=== PATIENT | male | born 1980 | race Caucasian/White ===

== ENCOUNTER → 2022-04-10 12:47 | Outpatient (CLI) | payer OTHER, SELFPAY ==
[2022-04-10 13:15] LABS: Basophils # 0.1 K/mm3 (0-0.2); Basophils % 0.7 % (0.1-2.0); Eosinophils # 0.3 K/mm3 (0.0-0.4); Hematocrit 40.3 % (42.0-52.0); Hemoglobin 13.2 g/dL (14.1-18.0); Lymphocytes # 1.2 K/mm3 (0.7-4.5); Mean Corpuscular HGB Conc 32.8 g/dL (31.8-35.4); Mean Corpuscular Hemoglobin 29.8 pg (27.0-31.2); Mean Corpuscular Volume 90.8 fl (80-94); Mean Platelet Volume 8.9 fl (7.4-10.4); Monocytes # 0.3 K/mm3 (0.1-1.0); Monocytes % 3.7 % (1.7-9.3); Neutrophils # 6.6 K/mm3 (1.8-7.8); Neutrophils % 77.6 % (37.0-80.0); Platelet Count 146 K/mm3 (142-424); Red Blood Count 4.44 M/mm3 (4.60-6.20); Red Cell Distribution Width 14.7 % (11.5-17.5); White Blood Count 8.5 K/mm3 (4.8-10.8)
[2022-04-10 13:19] LABS: Strep Scrn Group A (Rapid) Negative (Negative)
== END ==
PROVIDERS: PCP Family Medicine; Visit Provider Nurse Practitioner Family
DX: Z20.822 Contact with and (suspected) exposure to COVID-19 (principal)
CPT/HCPCS: 85025; 87275; 87276; 87430; C9803; U0003; U0005

== ENCOUNTER 2022-07-29 09:42 | Emergency (ER) | payer OTHER, SELFPAY ==
[2022-07-29 10:05] VITALS: BP 158/94; PULSE 73; RESP 22; TEMP 36.8; O2SAT 98; BMI 26.5
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
[2022-07-29 11:31] VITALS: BP 158/94; PULSE 73; RESP 19; TEMP 36.8; O2SAT 98
== END 2022-07-29 11:30 | disposition home or self-care (01) ==
PROVIDERS: Emergency Provider Nurse Practitioner Family; PCP Family Medicine
DX: S22.43XA Multiple fractures of ribs, bilateral, initial encounter for closed fracture (principal); S92.501A Displaced unspecified fracture of right lesser toe(s), initial encounter for closed fracture; V89.2XXA Person injured in unspecified motor-vehicle accident, traffic, initial encounter
CPT/HCPCS: 71100; 73630; 99213; G0463

== ENCOUNTER → 2022-07-31 16:26 | Outpatient (CLI) | payer OTHER, SELFPAY ==
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
== END ==
PROVIDERS: PCP Family Medicine; Visit Provider Family Medicine
DX: M79.675 Pain in left toe(s) (principal)
CPT/HCPCS: 73630

== ENCOUNTER → 2022-08-24 13:28 | Outpatient (CLI) | payer OTHER, SELFPAY ==
--- NOTE | 2022-08-24 13:40 | XR_ITS ---
FINAL REPORT CLINICAL HISTORY: FX OF RT FOURTH TOE COMPARISON: 07/29/2022 FINDINGS: LEFT FOOT Three views of the left foot demonstrate a transverse fracture through the base of the 4th proximal phalanx with mild displacement. No other fracture is identified. The soft tissues are unremarkable. IMPRESSION: Transverse fracture through the base of the 4th proximal phalanx with mild displacement. Reviewed, Interpreted and Dictated by Rizwan Chaparro MD Transcribed by Verenice Benitez Authenticated and [facility]
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
--- NOTE | 2022-08-24 13:40 | XR_ITS ---
FINAL REPORT CLINICAL HISTORY: FX OF LT GREAT TOE COMPARISON: 07/29/2022 FINDINGS: LEFT FOOT Three views of the left foot demonstrate a vertical fracture through the lateral base of the 1st distal phalanx. Fracture line extends through the midportion of the 1st distal phalanx. Vertical component extends to the lateral joint space. No other fracture is identified. The soft tissues are unremarkable. IMPRESSION: Vertical fracture through the lateral base of the 1st distal phalanx. Reviewed, Interpreted and Dictated by Rizwan Chaparro MD Transcribed by Verenice Benitez Authenticated and [facility]
== END ==
PROVIDERS: PCP Family Medicine; Visit Provider Family Medicine
DX: S92.501D Displaced unspecified fracture of right lesser toe(s), subsequent encounter for fracture with routine healing (principal); S22.43XD Multiple fractures of ribs, bilateral, subsequent encounter for fracture with routine healing; S92.405D Nondisplaced unspecified fracture of left great toe, subsequent encounter for fracture with routine healing
CPT/HCPCS: 71111; 73630